=== PATIENT | female | born 1940 | race Caucasian/White ===

== ENCOUNTER 2016-08-03 05:00 | Inpatient (IN) | payer BC, OTHER ==
--- NOTE | 2016-07-13 09:47 | History and Physical ---
History & Physical Date July 13, 2016. Chief Complaint left knee pain History of Present Illness Ms Izaguirre is a 75 year old female who complains of left knee pain, she presents with pain, crepitus, stiffness and decreased rom on the right and left side equally. She states that the symptoms have been chronic non-traumatic. The symptoms occur constantly with intermittent worsening. The problem is worse. Currently the patient states that the symptoms are moderate-severe. The pain is described as aching and throbbing. The symptoms occur continuously and are aggravated by daily activities, ascending stairs, descending stairs, weight bearing and walking. The symptoms are aggravated by. Katie states that the symptoms are relieved by no specific activity. In addition to knee pain equally on both sides the patient is also experiencing decreased mobility, crepitus, limping and joint pain. The patient has had a previous x-ray and MRI. Prior NSAIDs include Glucosamine and Aleve. She has been treated with Pt. has had Syn. One, Eufflexxa and Cortisone in the past with little relief and PRP 11-06- \ on the right side. Pt. has tried all types of injections with little to no relief. Pt. ambulated back with assistance from her for stability. Past Medical/Surgical History Past Medical History 1. Hypertension 2. Diabetes 3. GERD Allergies 1. Sulfa- causes hives Home Medications: Zoloft 100 mg Tab Y take 1 tablet (100MG) by oral route every day folic acid 1 mg Tab Y take 1 tablet (1MG) by oral route every day Fergon 240 mg (27 mg iron) Tab Y take 2 tablet (480MG) by oral route 3 times every day Humulin N 100 unit/mL Susp, Sub-Q Inj Y inject by subcutaneous route as per insulin sliding scale protocol Coreg 25 mg Tab Y take 1 tablet (25MG) by oral route 2 times every day with food Aldactone 25 mg Tab Y take 1 tablet (25MG) by oral route every day Lasix 20 mg Tab Y take 1 tablet (20MG) by oral route every day Prilosec Y take 1 capsule by oral route every day before a meal Victoza 2-Mark Y inject 1.2 milliliter by subcutaneous route every day Glucosamine Chondroitin PLUS 375 mg-100 mg-36 mg-54 mg capsule Y 1 capsule by oral route once daily multivitamin capsule Y take 1 capsule by oral route every day Additional History Hypertension: Yes Heart Disease: No Bleeding Tendencies: No Infectious Diseases: No Physical Examination Skin: warm/dry, no rash Eyes: normal inspection, EOMI, sclerae normal ENT: normal ENT inspection, pharynx normal Head: normocephalic, atraumatic Neck: supple, no adenopathy, trachea midline Respiratory/Chest: lungs clear, normal breath sounds, no respiratory distress Cardiovascular: regular rate, rhythm, no edema, no murmur Abdomen / GI: normal bowel sounds, non tender Addiitonal Comments: Left Knee Exam Exam Findings Details Knee ROM L * Active ROM - Flexion: 120 degrees, Extension: 3 degrees, Factors: pain, Description: active painful range of motion. Passive ROM - Flexion: 125 degrees, Extension: 3 degrees, Factors: pain, Description: passive painful range of motion. Knee ROM R * Active ROM - Flexion: 135 degrees, Extension: 0 degrees, Factors: pain, Description: active painful range of motion. Passive ROM - Flexion: 135 degrees, Extension: 0 degrees, Factors: pain, Description: passive painful range of motion. Strength LE Normal Strength Description - Normal lower extremity: Bilateral. Knee * Inspection - Gait: antalgic. Alignment - Right: neutral, Left: neutral. Ecchymosis - Right: negative, Left: negative. Effusion - Right: mild, Left: mild. Swelling - Right: mild, Left: mild. Flexibility - Right: normal, Left: normal. Maximum tenderness - Right: medial joint line, lateral joint line, patella, Left: medial joint line, lateral joint line, patella. Patella exam - Crepitation - Right: mild, Left: mild. Patella position - Right: neutral, Left: neutral. Tilt - Right: equal, Left: equal. [facility]'s - lateral - Right: Positive, Left: Positive. [facility]'s - medial - Right: Positive, Left: Positive. Knee Comments No calf tenderness Knee Normal Inspection - Atrophy - Right: Absent, Left: Absent. Skin - Right: Normal, Left: Normal. Patella exam - Apprehension - Right: Negative, Left: Negative. Q-angle - Right: Normal, Left: Normal. Roby's - Right: Negative, Left: Negative. Posterior drawer - Right: Negative, Left: Negative. Anterior drawer - Right: Negative, Left: Negative. Valgus stress - Right: Negative, Left : Negative. Varus stress - Right: Negative, Left: Negative. Extensor lag - Right : Normal, Left: Normal. Neurovascular LE Normal Neurovascular examination including reflexes, sensation , and pulses is within normal limits. Left Knee Diagnostics: Study Result/Report X-RAY Knee 4 Or More Views LT See Details Valgus stress radiographs of the knee reveal correction of the varus deformity to neutral without overcorrection. Standing weight bearing flexed knee PA views reveal [id number] articulation of the medial compartment of the knee. 90 degree flexed lateral views reveal maintenance of the joint space consistent with an intact ACL. Osteophyte formation is noted. The patellofemoral articulation is well maintained without significant degenerative changes. The lateral compartment is well maintained. ASSESSMENT: Severe anteromedial arthritis of the knee. X-RAY Knee 4 Or More Views RT Valgus stress radiographs of the knee reveal correction of the varus deformity to neutral without overcorrection. Standing weight bearing flexed knee PA views reveal [id number] articulation of the medial compartment of the knee. 90 degree flexed lateral views reveal maintenance of the joint space consistent with an intact ACL. Osteophyte formation is noted. The patellofemoral articulation is well maintained without significant degenerative changes. The lateral compartment is well maintained. ASSESSMENT: Severe anteromedial arthritis of the knee. Diagnosis left knee Osteoarthritis -Further care discussed with patient and at this point in time has failed conservative measures and would like to proceed with a left total knee replacement. Plan on discharge will be home with home health physical therapy. DVT prophalaxis with TEDs, SCDs and will also place on aspirin 81 mg p.o. b.i.d. for a month postop. Patient will have follow up appointment in our office two weeks post op for staple/suture removal and re-evaluation. Patient otherwise has no other questions or concerns.
[2016-07-13 11:55] VITALS: BMI 38.0
--- NOTE | 2016-07-13 12:41 | PAT Medication Instructions ---
Service Date July 13, 2016. Current Home Medication List Amlodipine (Norvasc), 10 MG PO QAM Carvedilol (Coreg), 1 TAB PO BID Ferrous Gluconate (Ferrous Gluconate), 324 MG PO QAM Folic Acid (Folic Acid), 2 TAB PO QAM Furosemide (Lasix), 20 MG PO QAM Insulin Human NPH (Humulin N), 32 UNITS SQ QAM Insulin Human NPH (Humulin N), 23 UNITS SQ QPM Irbesartan (Avapro), 150 MG PO QAM Omeprazole (Prilosec), 20 MG PO QAM Sertraline (Zoloft), 100 MG PO QAM Sitagliptin (Januvia), 50 MG PO QAM Spironolactone (Aldactone), 25 MG PO BID Medication Instructions For Your Scheduled Surgery - Hold the following medications the morning of surgery: Irbesartan (Avapro), 150 MG PO QAM Spironolactone (Aldactone), 25 MG PO BID Sitagliptin (Januvia), 50 MG PO QAM Sertraline (Zoloft), 100 MG PO QAM Furosemide (Lasix), 20 MG PO QAM Folic Acid (Folic Acid), 2 TAB PO QAM Ferrous Gluconate (Ferrous Gluconate), 324 MG PO QAM - Take the following medications the morning of surgery with a sip of water: Omeprazole (Prilosec), 20 MG PO QAM Carvedilol (Coreg), 1 TAB PO BID Amlodipine (Norvasc), 10 MG PO QAM - Take the following medications as scheduled the night before surgery: Insulin Human NPH (Humulin N), 23 UNITS SQ QPM Spironolactone (Aldactone), 25 MG PO BID Carvedilol (Coreg), 1 TAB PO BID - For Insulin Dependent Diabetic patients: Test blood sugar A.M. of surgery. - If Blood sugar greater than 150, take half of your regular dose of: Insulin Human NPH (Humulin N); take 16 units - If Blood sugar less than 150, do not take any: Insulin Human NPH (Humulin N) If you have any questions please call us at [phone] (Mehnaz Kiser PA-C) or [phone] or [phone]
[2016-07-13 13:15] LABS: BASO % 0.4 %; BASO ABS # 0.03 K/uL (0-0.2); COMPLETE YES; HEMATOCRIT 38.6 % (37-47); IG% 0.3 %; LYMPH % 26.7 %; LYMPH ABS # 1.94 K/uL (1.2-3.4); MEAN CELL VOLUME 87.3 fL (80-100); MEAN CORPUSCULAR HEMOGLOBIN 28.7 pg (25-34); MEAN CORPUSCULAR HGB CONC 32.9 g/dl (32-36); MEAN PLATELET VOLUME 10.6 fL (7.4-10.4); MONO % 8.4 %; NEUT % 61.2 %; PLATELET COUNT 202 K/uL (130-400); RED BLOOD COUNT 4.42 M/uL (4.2-5.4); WHITE BLOOD COUNT 7.26 K/uL (4.8-10.8)
--- NOTE | 2016-07-13 13:16 | DIAGNOSTIC IMAGING REPORT ---
CHEST PREADMISSION(PA/LAT) CLINICAL HISTORY: Preoperative evaluation. COMPARISON STUDY: No previous studies for comparison. FINDINGS: The lung volumes are normal. There is no pneumothorax or pleural effusion. There are cholecystectomy clips. Borderline cardiomegaly is noted. Mild interstitial prominence is noted. There is no consolidation to suggest pneumonia. IMPRESSION: 1. Mild age indeterminate interstitial thickening. This is probably chronic although mild pulmonary edema could appear similar. 2. Top normal cardiac size. Electronically signed by: Skyler Sifuentes M.D. 07/13/2016 1:15 PM Dictated Date/Time: 07/13/2016 1:14 PM
[2016-07-13 13:20] LABS: URINE APPEARANCE CLEAR (CLEAR); URINE BILIRUBIN NEG (NEG); URINE COLOR YELLOW; URINE EPITHELIAL CELL AUTO >30 /lpf (0-5); URINE NITRITE NEG (NEG); URINE SPECIFIC GRAVITY 1.019 (1.000-1.030); UROBILINOGEN NEG (NEG); ZZUR CULT IF INDIC CLEAN CATCH NO
[2016-07-13 13:21] LABS: MANUAL MICROSCOPIC REQUIRED? NO; REVIEW REQ? NO
[2016-07-13 13:24] LABS: INR 1.1 (0.9-1.1); PROTHROMBIN TIME (PATIENT) 11.3 SECONDS (9.0-12.0)
[2016-07-13 13:59] LABS: BUN/CREATININE RATIO 28.5 (10-20); CALCIUM 8.9 mg/dl (8.5-10.1); CREATININE 1.1 mg/dl (0.60-1.20); POTASSIUM 5.2 mmol/L (3.5-5.1)
[2016-07-13 14:10] LABS: ESTIMATED AVERAGE GLUCOSE 140 mg/dl; HA1C FLAG Normal (Normal)
[~2016-08-03] VITALS: Ht 175.3 cm; Wt 118.0 kg
[2016-08-03] VITALS (10 sets, daily range): BP systolic 123–163; BP diastolic 67–89; PULSE 59–93; TEMP 36.7–36.9; O2SAT 93–97; Ht 175.3 cm; Wt 118.0 kg
[~2016-08-03 05:00] MED LIST: AMLO-114 PO; CARV25TA2 PO; FERR325T18 PO; FLV1 PO; FURO-85 PO; INSHNI SQ; IRBE-37 PO; PRLSR20 PO; SERT-234 PO; SITA50TA3 PO; SPIR25TA PO
[2016-08-03] MEDS ORDERED: LACTATED RINGER'S 1000ML 1,000 ML IV SCH ×2 (06:00)
[2016-08-03] MEDS ORDERED: CEFAZOLIN 3000 MG/65 ML D5W 65 ML IV SCH (06:00)
[2016-08-03] MEDS ORDERED: ROPIVACAINE 5MG/ML 30 ML 150 MG, BUPIVACAINE/EPINEPHR 0.5% MPF 30 ML, KETOROLAC TROMETH... INFIL SCH ×7 (06:00)
[2016-08-03] MEDS ORDERED: PROPOFOL IV EMULSION 10 MG/ML 20 ML VIAL IV ONE (06:23)
[2016-08-03] MEDS ORDERED: MIDAZOLAM HCL 1 MG/ML 2ML VIAL ONE ×3 (06:23→08:05)
[2016-08-03] MEDS ORDERED: FENTANYL CITRATE INJ 50 MCG/1 ML 2 ML VIAL ONE (06:23)
[2016-08-03] MEDS ORDERED: POVIDONE-IODINE OP SOLN 30 ML BTL ONE (06:30)
[2016-08-03] MEDS ORDERED: BACITRACIN 50000 UNIT VIAL ONE (06:31)
[2016-08-03] MEDS ORDERED: BUPIVACAINE 0.5 % 5 MG/1 ML PF 10ML VIAL ONE (06:32)
[2016-08-03] MEDS ORDERED: BUPIVACAINE 0.25% 30 ML VIAL ONE (06:32)
[2016-08-03] MEDS ORDERED: CEFAZOLIN IV 3,000 MG/65 ML D5W IV ONE (06:43)
--- NOTE | 2016-08-03 06:52 | History & Physical Bridge Note ---
H&P Re-Evaluation Bridge Note: I have examined the patient, reviewed the History & Physical and in the interval since the performance of the History & Physical I have noted the following changes of clinical significance: No changes noted
[2016-08-03] MEDS ORDERED: LACTATED RINGER'S 1000ML 1,000 ML IV PRN (07:36)
[2016-08-03] MEDS ORDERED: ONDANSETRON INJ 2 MG/ML 2 ML VIAL IV PRN (07:45)
[2016-08-03] MEDS ORDERED: FENTANYL CITRATE INJ 50 MCG/1 ML 2 ML VIAL IV PRN (07:45)
[2016-08-03] MEDS ORDERED: ONDANSETRON INJ 2 MG/ML 2 ML VIAL ONE (07:55)
--- NOTE | 2016-08-03 07:59 | [facility] Post Operative Brief Note ---
Immediate Operative Summary Operative Date Aug 03, 2016. Pre-Operative Diagnosis Left Knee Degenerative Joint Disease Post-Operative Diagnosis Same as Preop Procedure(s) Performed Left Total Knee Arthroplasty Surgeon Dr. Rosenbaum Dragline Operator Surgeon(s) Moises Markham PA-C Estimated Blood Loss 5ml Findings severe djd lt knee Specimens A. Left Knee Bone and Tissue Complication(s) None Disposition Recovery Room / PACU
--- NOTE | 2016-08-03 08:33 | OPERATIVE REPORT ---
DATE OF OPERATION: 08/03/2016 PREOPERATIVE DIAGNOSIS: Severe end-stage tricompartmental degenerative joint disease, left knee. POSTOPERATIVE DIAGNOSIS: Severe end-stage tricompartmental degenerative joint disease, left knee. PROCEDURE: Left total knee arthroplasty utilizing Gorman & Nephew Journey II patient matched total knee arthroplasty size 4 femur, 3 tibia, 9 poly, and 32 oval patella. SURGEON: Dr. James Rosenbaum. MACHINE STAKER: Moises Markham, who was necessary for prepping, draping, retraction, wound closure of deep fascia, subcutaneous and skin and was necessary for the case. COMPLICATIONS: None. ESTIMATED BLOOD LOSS: 5 mL. TOURNIQUET TIME: 40 minutes. HISTORY OF PRESENT ILLNESS: The patient is a very pleasant 75-year-old female who presents with severe end-stage tricompartmental degenerative joint disease. After failing all attempts at conservative management, she presents for total knee arthroplasty. DESCRIPTION OF PROCEDURE: The patient was properly prepped and draped in supine position for total knee arthroplasty after identifying the appropriate surgical site. An anterior midline incision was made through the subcutaneous tissues down to the region of the extensor mechanism. A medial parapatellar incision was subsequently made. Meticulous hemostasis was obtained and performed at all times. The patella having been subluxed lateralward, medial and lateral meniscal remnants were excised. The patellar cut was then initially made and was sized to the appropriate size. After subluxing the tibia forward the appropriate meniscal fragments having been removed the distal femur was then cut first utilizing a Gorman and Nephew block. The distal femoral cuts and chamfer cuts were all made under direct visualization and the proximal tibial osteotomy cut was also made utilizing Gorman and Nephew blocks and checked with an extramedullary guide. The appropriate trial components on the femur and tibia were placed. Appropriate trial spacers were used to check flexion and extension gaps. With flexion and extension gaps being equal, the components were then subsequently after thorough irrigation and debridement lavage components were then subsequently cemented in the following order: femur, tibia and patella. Exparel was used for intraoperative anesthesia, the medial parapatellar incision was closed utilizing #1 Vicryl, subQ was closed with 2-0 Vicryl, skin was closed with skin clips. A sterile compression dressing was placed. The patient was taken to recovery room in stable condition. Due to the complex nature of the procedure, the entire surgery was performed with the operational assistance of Moises Markham PA-C. The medical claims assistant, under direct supervision, was involved in the actual performance of all aspects of the surgical procedure including hemostasis, tissue retraction and incision, instrument management, patient positioning, and wound closure. I attest to the content of the Intraoperative Record and any orders documented therein. Any exception s are noted below.
[2016-08-03] MEDS ORDERED: MoRPHine SULFATE 2 MG/ML CARP IV PRN ×2 (08:45→10:30)
[2016-08-03] MEDS ORDERED: MAGNESIUM HYDROXIDE SUSP 30 ML UDC PO PRN (08:45)
[2016-08-03] MEDS ORDERED: BISACODYL 10 MG SUPP PR PRN (08:45)
[2016-08-03] MEDS ORDERED: ALUMINUM/MAGNESIUM/SIMETH (MAALOX MAX) 30 ML UDC PO PRN (08:45)
[2016-08-03] MEDS ORDERED: SOD PHOSPHATE/SOD BIPHOSPHATE ENEMA 132 ML BTL PR PRN (08:45)
[2016-08-03] MEDS ORDERED: ZOLPIDEM TARTRATE 5 MG TAB PO PRN (08:45)
[2016-08-03] MEDS: CARVEDILOL 25 MG TAB PO SCH ×2 (09:00→21:00)
[2016-08-03] MEDS: AMLODIPINE BESYLATE 5 MG TAB PO SCH (09:00)
[2016-08-03] MEDS ORDERED: FERROUS GLUCONATE 324 MG TAB PO SCH (09:00)
--- NOTE | 2016-08-03 09:24 | DIAGNOSTIC IMAGING REPORT ---
LEFT KNEE 1 OR 2 VIEWS ROUTINE CLINICAL HISTORY: AP/LATERAL IN PACU LEFT KNEE COMPARISON: None. DISCUSSION: Total left knee replacement. Good contact between prosthetic and underlying bone. Surgical drains are in position. IMPRESSION: Anatomic alignment status post total left knee replacement. Electronically signed by: Moises Trammell M.D. 08/03/2016 9:22 AM Dictated Date/Time: 08/03/2016 9:21 AM
--- NOTE | 2016-08-03 09:56 | Anesthesiology Progress Note ---
Anesthesia Post Op Note Date & Time Aug 03, 2016 at 09:56 Vital Signs Pain Intensity: 0 Vital Signs Past 12 Hours Date Time Temp Pulse Resp B/P (MAP) Pulse Ox O2 Delivery O2 Flow Rate FiO2 08/03/16 09:20 36.9 53 14 135/55 94 Nasal Cannula 3 08/03/16 09:10 64 14 127/61 94 Nasal Cannula 3 08/03/16 09:00 55 14 138/68 96 Nasal Cannula 3 08/03/16 08:50 52 14 126/66 96 Nasal Cannula 3 08/03/16 08:40 37. 55 14 121/51 98 Nasal Cannula 3 08/03/16 05:52 36.7 63 20 149/67 97 Room Air Notes Mental Status: alert / awake / arousable, participated in evaluation Pt Amnestic to Procedure: Yes Nausea / Vomiting: adequately controlled Pain: adequately controlled Airway Patency, RR, SpO2: stable & adequate BP & HR: stable & adequate Hydration State: stable & adequate Neuraxial Anesthesia: was administered, sensory block is resolving Anesthetic Complications: no major complications apparent
[2016-08-03] MEDS ORDERED: MoRPHine SULFATE 10 MG/ML CARP/VIAL IV PRN (10:30)
[2016-08-03] MEDS: SODIUM CHLORIDE 0.9% 1000ML 1,000 ML IV SCH ×2 (10:33→17:52)
[2016-08-03] MEDS: OXYCODONE HCL IR 5 MG TAB (IMMEDIATE RELEASE) PO PRN ×2 (11:45→15:57)
[2016-08-03] MEDS: OXYCODONE HCL 10 MG TABCR (OXYCONTIN) PO SCH ×2 (12:00→20:57)
[2016-08-03] MEDS: CEFAZOLIN IV 2,000 MG in DEXTROSE 5% 50ML 50 ML IV SCH ×2 (13:21→21:01)
[2016-08-03] MEDS: FERROUS GLUCONATE 324 MG TAB PO SCH ×2 (13:21→17:45)
[2016-08-03] MEDS: ONDANSETRON INJ 2 MG/ML 2 ML VIAL IV PRN (15:22)
--- NOTE | 2016-08-03 15:35 | INTERNAL MEDICINE CONSULTATION ---
DATE OF CONSULTATION: 08/03/2016 REASON FOR CONSULTATION: Medical co-care status post total knee replacement. HISTORY OF PRESENT ILLNESS: The patient is a 75-year-old female with past medical history of hypertension, diabetes and atrial fibrillation. The patient suffered from severe arthritis that failed outpatient conservative management and presented for an elective left knee replacement. The procedure went uneventful and we were consulted for medical co-care. It was noticed in her labs that the potassium is borderline elevated. PAST MEDICAL HISTORY: As mentioned in the HPI. ALLERGIES: SULFA. HOME MEDICATIONS: 1. Zoloft 100 mg p.o. daily. 2. Folic acid supplement. 3. Fergon 240 tablet 2 tabs by mouth 3 times a day. 4. Insulin regimen, unsure from how many units. 5. Coreg 25 mg p.o. b.i.d. 6. Aldactone 25 mg p.o. daily. 7. Lasix 20 mg daily. 8. daily. 9. Victoza 2 packs. 10. Glucosamine/chondroitin. 11. Multivitamin. FAMILY HISTORY: Heart disease and diabetes. SOCIAL HISTORY: Does not smoke or drink alcohol. PHYSICAL EXAMINATION: GENERAL: The patient is morbidly obese, not in acute distress. VITAL SIGNS: Temperature 36.7, heart rate is 61, respirations 16, blood pressure 132/73, pulse ox 96% on 2 liters. HEENT: No jaundice, no pallor with mucous membranes. NECK: Supple. HEART: S1, S2 normal. No gallop, rub or murmur. LUNGS: Clear to auscultation bilaterally. Normal chest wall expansion. ABDOMEN: Soft, nontender, nondistended. NEUROLOGIC: Awake, alert, oriented to time, place, and person. Moves all extremities. Sensation intact. Cranial nerves II through XII appears to be intact. EXTREMITIES: Left knee is wrapped status post total knee replacement. ASSESSMENT: 1. Hyperkalemia, possible secondary to dehydration. 2. Diabetes mellitus. 3. Hypertension. 4. Dyslipidemia. 5. Atrial fibrillation. 6. Status post left knee replacement. PLAN: 1. We will repeat patient's potassium levels. 2. Continue supportive care. 3. Restart patient's on home medications, will leave Eliquis initiation up to the primary team. She was supposed to start Eliquis for atrial fibrillation. 4. Continue post-surgical care. 5. Pain management as per primary team. 6. We will order labs in a.m. 7. The patient appears to be clinically suspicious for obstructive sleep apnea. She was instructed to do a sleep study as an outpatient. LAUREL
[2016-08-03 15:52] LABS: CALCIUM 7.9 mg/dl (8.5-10.1); CREATININE 1.2 mg/dl (0.60-1.20); POTASSIUM 5.1 mmol/L (3.5-5.1)
[2016-08-03] MEDS: DOCUSATE SODIUM 100 MG CAP PO SCH (20:57)
[2016-08-03] MEDS: SENNA 8.6 MG TAB PO SCH (20:57)
[2016-08-03] MEDS ORDERED: ASPIRIN 81 MG ECTAB PO SCH (21:00)
[2016-08-04] VITALS (8 sets, daily range): BP systolic 117–167; BP diastolic 64–78; PULSE 79–90; TEMP 36.8–37.1; O2SAT 92–97
[2016-08-04] MEDS: ONDANSETRON INJ 2 MG/ML 2 ML VIAL IV PRN ×3 (00:15→22:35)
[2016-08-04] MEDS: OXYCODONE HCL IR 5 MG TAB (IMMEDIATE RELEASE) PO PRN ×5 (00:16→22:36)
[2016-08-04] MEDS: SODIUM CHLORIDE 0.9% 1000ML 1,000 ML IV SCH (04:31)
[2016-08-04 05:46] LABS: BASO % 0.1 %; BASO ABS # 0.01 K/uL (0-0.2); COMPLETE YES; HEMATOCRIT 32.9 % (37-47); IG% 0.3 %; LYMPH % 10.1 %; MEAN CORPUSCULAR HEMOGLOBIN 28.9 pg (25-34); MEAN PLATELET VOLUME 10.5 fL (7.4-10.4); MONO % 9.9 %; NEUT % 79.6 %; PLATELET COUNT 194 K/uL (130-400); RED BLOOD COUNT 3.87 M/uL (4.2-5.4); WHITE BLOOD COUNT 11.92 K/uL (4.8-10.8)
[2016-08-04 06:02] LABS: INR 1.1 (0.9-1.1); PROTHROMBIN TIME (PATIENT) 12.2 SECONDS (9.0-12.0)
[2016-08-04 06:37] LABS: BUN/CREATININE RATIO 21.3 (10-20); CALCIUM 7.7 mg/dl (8.5-10.1); CREATININE 0.98 mg/dl (0.60-1.20); MAGNESIUM 1.8 mg/dl (1.8-2.4); POTASSIUM 4.6 mmol/L (3.5-5.1)
[2016-08-04 06:40] LABS: ALB/GLOB RATIO 0.9 (0.9-2); PHOSPHORUS 2.8 mg/dl (2.5-4.9)
--- NOTE | 2016-08-04 07:04 | Orthopedic Progress Note ---
Orthopedic Progress Note Date of Service Aug 04, 2016. Subjective Post OP Day: 1 (s/p Left TKA) Reports: feeling well, pain controlled w PO medications, Denies: complaints, chest pain, SOB, nausea / vomiting, light headedness, calf pain Objective calves soft nontender, N/V intact, capillary refill less than 2 sec., dressing C /D/I, A&O x3, toes mobile, hemovac drainage (300cc/8 hours) Date Time Temp Pulse Resp B/P (MAP) Pulse Ox O2 Delivery O2 Flow Rate FiO2 08/04/16 03:15 36.9 84 17 124/72 (89) 94 Nasal Cannula 2.0 08/04/16 00:30 Nasal Cannula 2.0 08/03/16 23:09 36.8 87 16 123/72 (89) 97 Nasal Cannula 2.0 08/03/16 20:59 93 163/89 (113) 08/03/16 19:09 36.9 85 16 127/73 (91) 94 Room Air 08/03/16 18:55 Room Air 08/03/16 15:19 36.7 81 18 144/67 (92) 94 Room Air 08/03/16 12:39 66 16 128/71 (90) 95 Nasal Cannula 08/03/16 11:39 70 16 132/75 (94) 97 Nasal Cannula 2.0 08/03/16 10:41 60 16 134/72 (92) 96 Nasal Cannula 2.0 08/03/16 10:17 61 16 132/73 (92) 96 Nasal Cannula 2.0 08/03/16 10:04 93 Nasal Cannula 2.0 08/03/16 09:45 36.7 59 16 131/69 (89) 94 Nasal Cannula 2.0 08/03/16 09:45 93 Nasal Cannula 2.0 08/03/16 09:20 36.9 53 14 135/55 94 Nasal Cannula 3 08/03/16 09:10 64 14 127/61 94 Nasal Cannula 3 08/03/16 09:00 55 14 138/68 96 Nasal Cannula 3 08/03/16 08:50 52 14 126/66 96 Nasal Cannula 3 08/03/16 08:40 37. 55 14 121/51 98 Nasal Cannula 3 Laboratory Results 24 Hours: Test 08/04/16 05:19 White Blood Count 11.92 K/uL Red Blood Count 3.87 M/uL Hemoglobin 11.2 g/dL Hematocrit 32.9 % Mean Corpuscular Volume 85.0 fL Mean Corpuscular Hemoglobin 28.9 pg Mean Corpuscular Hemoglobin Concent 34.0 g/dl Platelet Count 194 K/uL Mean Platelet Volume 10.5 fL Neutrophils (%) (Auto) 79.6 % Lymphocytes (%) (Auto) 10.1 % Monocytes (%) (Auto) 9.9 % Eosinophils (%) (Auto) 0.0 % Basophils (%) (Auto) 0.1 % Neutrophils # (Auto) 9.50 K/uL Lymphocytes # (Auto) 1.20 K/uL Monocytes # (Auto) 1.18 K/uL Eosinophils # (Auto) 0.00 K/uL Basophils # (Auto) 0.01 K/uL Prothromb Time International Ratio 1.1 Prothrombin Time 12.2 SECONDS Assessment & Plan Assessment: POD #1 s/p Left TKA -PT/OT -dvt proph with greg/scd/eliquis -plan for d/c home with HHPT Hyperkalemia- within normal limits today Diabetes mellitus. Hypertension. Dyslipidemia. Atrial fibrillation.- will start eliquis this am Discharge Planning Discharge Planning: home with home health DVT Prophylaxis: TEDs, SCDs Therapy: Physical Therapy
[2016-08-04] MEDS: MULTIVITAMIN TAB PO SCH (09:13)
[2016-08-04] MEDS: DOCUSATE SODIUM 100 MG CAP PO SCH ×2 (09:14→21:17)
[2016-08-04] MEDS: CARVEDILOL 25 MG TAB PO SCH ×2 (09:14→21:19)
[2016-08-04] MEDS: SERTRALINE HCL 100 MG TAB PO SCH (09:14)
[2016-08-04] MEDS: AMLODIPINE BESYLATE 5 MG TAB PO SCH (09:15)
[2016-08-04] MEDS: PANTOprazole SOD 40 MG TAB PO SCH (09:15)
[2016-08-04] MEDS: APIXABAN 2.5 MG TAB PO SCH ×2 (09:15→21:18)
[2016-08-04] MEDS: FERROUS GLUCONATE 324 MG TAB PO SCH ×3 (09:15→17:45)
[2016-08-04] MEDS ORDERED: NURSING VERBAL MED ORDER ONE (10:00)
[2016-08-04] MEDS ORDERED: METOCLOPRAMIDE HCL INJ 5 MG/ML 2 ML VIAL IV PRN ×2 (10:15→16:15)
[2016-08-04] MEDS: MoRPHine SULFATE 4 MG/ML 1 ML CARP\\VIAL IV PRN ×2 (11:08→18:00)
[2016-08-04] MEDS: OXYCODONE HCL 10 MG TABCR (OXYCONTIN) PO SCH ×2 (11:10→21:14)
--- NOTE | 2016-08-04 11:32 | Discharge Instructions ---
Discharge Instructions Date of Service Aug 04, 2016. Admission Reason for Admission: Left Knee Osteoarthritis Discharge Discharge Diagnosis / Problem: Left Total Knee Replacement Discharge Goals Goal(s): Decrease discomfort, Improve function, Increase independence Activity Recommendations Activity Limitations: as noted below Weightbearing Status: Left weightbearing (as tolerated) . Instructions / Follow-Up Instructions / Follow-Up ACTIVITY RECOMMENDATIONS: SELF CARE INSTRUCTIONS AFTER TOTAL KNEE REPLACEMENT A. You may need to continue a physical therapy program after discharge from the hospital. There are several options available to you. Your doctor will assist you in selecting the best one for you. 1. An out-patient facility 2 to 3 times a week for therapy or home therapy. 2. Continue working on all exercises taught to you in the hospital. Your goals should be to increase bending of your knee to 90 degrees and beyond and to fully straighten your knee. B. You may progress at your own pace from walking with a walker or crutches to a cane; then to no assistive devices. C. Make walking a part of your daily routine. Be up as much as comfortable with rest periods throughout the day. Rest with leg elevation is very important. Use the ice wrap frequently for the first 3-4 weeks. D. There are no restrictions on activities. You may ride in a car, shop, participate in customer support technician and all social activities. E. Wear the long elastic stockings (KLEBER hose) 20 hours a day for 2 weeks after surgery. They can be removed several times a day for laundering and for a bath. F. You may shower, no tub baths until cleared by your doctor. SPECIAL CARE INSTRUCTIONS: VERY IMPORTANT TO READ AND REVIEW A. There are a few signs you need to watch for after you are home. Call [facility] [place] if you notice any of the followin. Increased severe knee pain. Some pain is expected especially when you exercise. 2. Increased swelling in your leg or knee; pain or swelling of the calf muscle in either lower leg. 3. Any fluid drainage from the incision. 4. Shortness of breath or chest pain. B. Please call [facility] at if you have any concerns or questions about your operation or recovery. The doctor or his nurse will return your call promptly. C. You must take antibiotics before dental work, bladder, bowel or other surgery. Your doctor will provide you with a permanent care to carry describing this precaution. IMPORTANT: * REMEMBER TO TAKE ASPIRIN, 81 MG, TWICE DAILY FOR 4 WEEKS UNLESS OTHERWISE DIRECTED. THIS IS YOUR BLOOD THINNER. * HIGH RISK PATIENTS MAY BE PRESCRIBED A STRONGER BLOOD THINNER. THIS WILL BE PROVIDED AT DISCHARGE. * CALL IF INCREASED PAIN, REDNESS, DRAINAGE OR FEVER GREATER THAT 101. * WEAR KLEBER HOSE 20 HOURS PER DAY FOR 2 WEEKS. * Prevena- This is a large suction dressing covering your incision. This will help pull any excess drainage from the wound and allow your incision to heal properly. You may shower with this if you can keep the unit outside of the shower. If any bleeding or leakage is noted please call your doctor's office. This will remain on your incision for 7 days and then should be removed. This can be done yourself or by the home nursing staff if applicable. The entire unit is disposable once removed. Once removed, keep incision clean and dry. If redness or drainage is noted, please call your surgeon. FOLLOW UP VISIT: If appointment is not already scheduled: Please call [facility] to make a follow-up appointment for 2 weeks after your surgery at . Current Hospital Diet Patient's current hospital diet: Diabetes Type 2 Diet Discharge Diet Recommended Diet: Diabetes Type 2 Diet Procedures Procedures Performed: Left Total Knee Arthroplasty Pending Studies Studies pending at discharge: no Laboratory Results Hemoglobin A1c Test 07/13/16 12:50 Range/Units Estimated Average Glucose 140 mg/dl Hemoglobin A1c 6.5 H 4.5-5.6 % Medical Emergencies . Who to Call and When: Medical Emergencies: If at any time you feel your situation is an emergency, please call 911 immediately. . Non-Emergent Contact Non-Emergency issues call your: Primary Care Provider, Surgeon . "Provider Documentation" section prepared by Moises Markham. . VTE Core Measure Inpt VTE Proph given/why not?: Other Anticoagulation (Eliquis 5mg po bid), TSabrina Waite, SCD's [place] Drug Monitoring Program Search Results: patient reviewed within database, no issues identified
[2016-08-04] MEDS ORDERED: DEXTROSE 50% 50 ML SYR IV PRN (15:30)
[2016-08-04] MEDS ORDERED: PROMETHAZINE HCL INJ 12.5 MG in SODIUM CHLORIDE 0.9% 50ML 50 ML IV PRN (15:30)
[2016-08-04] MEDS ORDERED: GLUCAGON FOR INJ 1 MG VIAL SQ PRN (15:30)
[2016-08-04] MEDS ORDERED: GLUCOSE 40% GEL 15 GM TUBE PO PRN (15:30)
[2016-08-04] MEDS ORDERED: GLUCOSE 10 TABS/TUBE PO PRN (15:30)
[2016-08-04] MEDS ORDERED: INSULIN GLARGINE SOLOSTAR 100 UNITS/ML 3 ML PEN SC ONE (16:00)
--- NOTE | 2016-08-04 17:57 | Hospitalist Progress Note ---
Hospitalist Progress Note Date of Service Aug 04, 2016. Subjective Pt evaluation today including: conversation w/ patient, conversation w/ family , physical exam Pt had a lot of N/V today which she says is typical for her always after receiving anesthesia. SHe is now feeling better and is michelle liquids Constitutional: No fever Respiratory: No shortness of breath Cardiovascular: No chest pain Abdomen: + nausea, + vomiting, No pain, No diarrhea Musculoskeletal: + joint pain (left knee) All Other Systems: Reviewed and Negative Objective Vital Signs Date Time Temp Pulse Resp B/P (MAP) Pulse Ox O2 Delivery O2 Flow Rate FiO2 08/04/16 15:07 36.8 80 16 146/65 (92) 93 Nasal Cannula 2.0 08/04/16 11:44 37.1 80 18 137/70 (92) 92 Room Air 08/04/16 10:13 167/78 (107) 08/04/16 08:33 90 150/77 (101) 08/04/16 08:07 96 Room Air 08/04/16 07:45 36.9 79 18 129/64 (85) 96 Room Air 08/04/16 07:30 Room Air 08/04/16 03:15 36.9 84 17 124/72 (89) 94 Nasal Cannula 2.0 08/04/16 00:30 Nasal Cannula 2.0 08/03/16 23:09 36.8 87 16 123/72 (89) 97 Nasal Cannula 2.0 08/03/16 20:59 93 163/89 (113) 08/03/16 19:09 36.9 85 16 127/73 (91) 94 Room Air 08/03/16 18:55 Room Air Physical Exam General Appearance: WD/WN, no apparent distress, + obese Eyes: normal inspection, sclerae normal ENT: hearing grossly normal Neck: trachea midline Respiratory/Chest: lungs clear, normal breath sounds, no respiratory distress, no accessory muscle use Cardiovascular: + irregularly irregular (w/ normal rate) Abdomen: normal bowel sounds, non tender, soft (and obese) Extremities: + pertinent finding (left knee in banadge with ice pack, able to dorsiflex and plantarflex left foot, right leg no edema) Neurologic/Psychiatric: alert, normal mood/affect, oriented x 3 Skin: normal color, warm/dry, no rash Laboratory Results Last 24 Hours Test 08/03/16 20:53 08/04/16 05:19 08/04/16 08:25 08/04/16 12:03 Bedside Glucose 211 mg/dl 189 mg/dl 188 mg/dl White Blood Count 11.92 K/uL Red Blood Count 3.87 M/uL Hemoglobin 11.2 g/dL Hematocrit 32.9 % Mean Corpuscular Volume 85.0 fL Mean Corpuscular Hemoglobin 28.9 pg Mean Corpuscular Hemoglobin Concent 34.0 g/dl Platelet Count 194 K/uL Mean Platelet Volume 10.5 fL Neutrophils (%) (Auto) 79.6 % Lymphocytes (%) (Auto) 10.1 % Monocytes (%) (Auto) 9.9 % Eosinophils (%) (Auto) 0.0 % Basophils (%) (Auto) 0.1 % Neutrophils # (Auto) 9.50 K/uL Lymphocytes # (Auto) 1.20 K/uL Monocytes # (Auto) 1.18 K/uL Eosinophils # (Auto) 0.00 K/uL Basophils # (Auto) 0.01 K/uL RDW Standard Deviation 41.1 fL RDW Coefficient of Variation 13.3 % Immature Granulocyte % (Auto) 0.3 % Immature Granulocyte # (Auto) 0.03 K/uL Prothrombin Time 12.2 SECONDS Prothromb Time International Ratio 1.1 Sodium Level 138 mmol/L Potassium Level 4.6 mmol/L Chloride Level 105 mmol/L Carbon Dioxide Level 24 mmol/L Anion Gap 9.0 mmol/L Blood Urea Nitrogen 21 mg/dl Creatinine 0.98 mg/dl Est Creatinine Clear Calc Drug Dose 67.0 ml/min Estimated GFR () 64.9 Estimated GFR (Non- 56.0 BUN/Creatinine Ratio 21.3 Random Glucose 191 mg/dl Calcium Level 7.7 mg/dl Phosphorus Level 2.8 mg/dl Magnesium Level 1.8 mg/dl Total Bilirubin 0.7 mg/dl Aspartate Amino Transf (AST/SGOT) 16 U/L Alanine Aminotransferase (ALT/SGPT) 19 U/L Alkaline Phosphatase 87 U/L Total Protein 6.4 gm/dl Albumin 3.1 gm/dl Globulin 3.3 gm/dl Albumin/Globulin Ratio 0.9 Test 08/04/16 16:55 Bedside Glucose 195 mg/dl Assessment and Plan This pt is a 75 yo female with a h/o obesity, OA, GERD, DMII, permanent atrial fibrillation on Eliquis, and HTN, here with left TKA. Left TKA-POD#1, Ortho management -DVT proph with Eliquis -pain control PT/OT and plan for home PT -f/u with Ortho outpatient Post-op N/V=-related to anesthesia -continue reglan prn, ZOfran prn, phenergan prn -restart IVFs if continues to not michelle po this evening A-fib/HTN- on Eliquis for anticoagulation, rate controlled with metoprolol, no issues with BP -continue home meds Coreg, Eliquis, amlodipine -irbesartan,lasix, and aldactone all on hold for mild hyperkalemia and to prevent dehydration post-op -continue to hold ARB and diuretics -follow PRP DMII-HgbA1C 6.5% preop, glucose here in hyperglycemic range but received dexamethasone intra-op. -start Lantus 10 units now and then once daily -SSI and accuchecks -return to home dosing of insulin upon discharge as well as Januvia Obesity, acute hypoxemic respiratory insufficiency-requiring 2 LNC, could have MITCHELL given body habitus. Probably some atelectasis as well -IS, mobilization -wean O2 as tolerated -may need 2-step prior to discharge -may need sleep study as an outpatient. Proph-Eliquis Dispo-FUll Code to home with Home PT when stable
[2016-08-04] MEDS: INSULIN ASPART 100 UNITS/ML 3 ML PEN SC SCH ×2 (17:58→21:00)
[2016-08-04] MEDS: SENNA 8.6 MG TAB PO SCH (21:18)
[2016-08-05] VITALS (10 sets, daily range): BP systolic 113–150; BP diastolic 66–82; PULSE 68–91; TEMP 36.9–37.3; O2SAT 83–98
[2016-08-05] MEDS: MoRPHine SULFATE 4 MG/ML 1 ML CARP\\VIAL IV PRN (00:13)
[2016-08-05] MEDS: ONDANSETRON INJ 2 MG/ML 2 ML VIAL IV PRN ×2 (05:42→17:27)
[2016-08-05] MEDS: OXYCODONE HCL IR 5 MG TAB (IMMEDIATE RELEASE) PO PRN ×2 (05:44→21:59)
[2016-08-05 06:04] LABS: BASO % 0.2 %; BASO ABS # 0.02 K/uL (0-0.2); COMPLETE YES; IG% 0.2 %; LYMPH % 17.7 %; LYMPH ABS # 1.88 K/uL (1.2-3.4); MEAN CELL VOLUME 85.6 fL (80-100); MEAN CORPUSCULAR HEMOGLOBIN 29.3 pg (25-34); MEAN CORPUSCULAR HGB CONC 34.2 g/dl (32-36); MEAN PLATELET VOLUME 10.5 fL (7.4-10.4); MONO % 11.5 %; NEUT % 69.4 %; PLATELET COUNT 182 K/uL (130-400); RED BLOOD COUNT 3.62 M/uL (4.2-5.4); WHITE BLOOD COUNT 10.62 K/uL (4.8-10.8)
[2016-08-05 06:38] LABS: CALCIUM 8.3 mg/dl (8.5-10.1); CREATININE 0.85 mg/dl (0.60-1.20); MAGNESIUM 1.8 mg/dl (1.8-2.4); POTASSIUM 4.4 mmol/L (3.5-5.1)
--- NOTE | 2016-08-05 07:06 | Orthopedic Progress Note ---
Orthopedic Progress Note Date of Service Aug 05, 2016. Subjective Post OP Day: 2 Reports: feeling well, nausea / vomiting (improved this am), pain controlled w PO medications, Denies: complaints, chest pain, SOB, light headedness, calf pain Objective calves soft nontender, N/V intact, capillary refill less than 2 sec., dressing C /D/I (prevena in place), A&O x3, toes mobile Date Time Temp Pulse Resp B/P (MAP) Pulse Ox O2 Delivery O2 Flow Rate FiO2 08/05/16 00:00 Room Air 08/04/16 23:48 36.8 88 16 117/70 (86) 97 Nasal Cannula 2.0 08/04/16 15:20 Nasal Cannula 2.0 08/04/16 15:07 36.8 80 16 146/65 (92) 93 Nasal Cannula 2.0 08/04/16 11:44 37.1 80 18 137/70 (92) 92 Room Air 08/04/16 10:13 167/78 (107) 08/04/16 08:33 90 150/77 (101) 08/04/16 08:07 96 Room Air 08/04/16 07:45 36.9 79 18 129/64 (85) 96 Room Air 08/04/16 07:30 Room Air Laboratory Results 24 Hours: Test 08/05/16 05:15 White Blood Count 10.62 K/uL Red Blood Count 3.62 M/uL Hemoglobin 10.6 g/dL Hematocrit 31.0 % Mean Corpuscular Volume 85.6 fL Mean Corpuscular Hemoglobin 29.3 pg Mean Corpuscular Hemoglobin Concent 34.2 g/dl Platelet Count 182 K/uL Mean Platelet Volume 10.5 fL Neutrophils (%) (Auto) 69.4 % Lymphocytes (%) (Auto) 17.7 % Monocytes (%) (Auto) 11.5 % Eosinophils (%) (Auto) 1.0 % Basophils (%) (Auto) 0.2 % Neutrophils # (Auto) 7.37 K/uL Lymphocytes # (Auto) 1.88 K/uL Monocytes # (Auto) 1.22 K/uL Eosinophils # (Auto) 0.11 K/uL Basophils # (Auto) 0.02 K/uL Assessment & Plan Assessment: POD #2 s/p Left TKA -PT/OT -dvt proph with greg/scd/eliquis -plan for d/c home with HHPT, if nausea remains controlled will likely d/c later today. Hyperkalemia- within normal limits today Diabetes mellitus. Hypertension. Dyslipidemia. Atrial fibrillation.- started her Eliquis yesterday am. Discharge Planning Discharge Planning: home with home health DVT Prophylaxis: TEDs, SCDs Therapy: Physical Therapy
[2016-08-05] MEDS ORDERED: ONDA8TAB6 PO (07:10)
[2016-08-05] MEDS ORDERED: RXC5 PO (07:10)
[2016-08-05] MEDS ORDERED: ELQ25 PO (07:10)
[2016-08-05] MEDS ORDERED: OXYSR10 PO (07:10)
--- NOTE | 2016-08-05 07:14 | Discharge Summary ---
Orthopedic Discharge Summary Admission Date/Reason Aug 03, 2016 at 08:49 Left Knee Osteoarthritis. Discharge Date/Disposition Aug 05, 2016 Home with services Diagnosis Principal Diagnosis: Left Knee DJD Procedure(s) Performed Left total knee arthroplasty utilizing [facility] patient matched total knee arthroplasty size 4 femur, 3 tibia, 9 poly, and 32 oval patella. Consultations Nikki Lee MD, medical consultation Medication Reconciliation New Medications: Ondansetron Hcl (Zofran) 8 Mg Tab 8 MG PO Q8 PRN for Nausea, #20 TAB Apixaban (Eliquis) 2.5 Mg Tab 5 MG PO BID for 30 Days, #120 TAB Oxycodone HCl (Oxycontin) 10 Mg Tabcr 10 MG PO Q12, #20 Oxycodone HCl (Oxycodone HCl) 5 Mg Tab 5-10 MG PO Q4H PRN for Pain, #60 TAB Continued Medications: Amlodipine (Norvasc) 10 Mg Tab 10 MG PO QAM, TAB Carvedilol (Coreg) 25 Mg Tab 1 TAB PO BID for 90 Days, #180 TAB 1 Refill Ferrous Gluconate (Ferrous Gluconate) 324 Mg Tab 324 MG PO QAM, TAB Folic Acid (Folic Acid) 1 Mg Tab 2 TAB PO QAM Furosemide (Lasix) 20 Mg Tab 20 MG PO QAM, TAB Insulin Human NPH (Humulin N) 100 Units/Ml Susp 32 UNITS SQ QAM Insulin Human NPH (Humulin N) 100 Units/Ml Susp 23 UNITS SQ QPM Irbesartan (Avapro) 150 Mg Tab 150 MG PO QAM, TAB Omeprazole (Prilosec) 20 Mg Capcr 20 MG PO QAM, CAP Sertraline (Zoloft) 100 Mg Tab 100 MG PO QAM, TAB Sitagliptin (Januvia) 50 Mg Tab 50 MG PO QAM, TAB Spironolactone (Aldactone) 25 Mg Tab 25 MG PO BID, TAB Admission Physical Exam As per Admitting History & Physical. Hospital Course Patient was a same day admission after undergoing a successful left TKA. she tolerated the procedure well. Post-operatively, her activity was progressed and well tolerated, she did experience post-op nausea which was felt to be related to anesthesia, which has improved this am. Please refer to daily progress notes and PT notes for complete details. After exam on 08/05/16, patient felt to be stable for discharge home with HHPT. Patient will f/u in the office in 2 weeks for further evaluation including x-rays and incision check, sooner if having any issues or concerns. Below are pertinent labs/studies during their hospital stay: Last Vital Signs Documentation Date Time Temp Pulse Resp B/P (MAP) Pulse Ox O2 Delivery O2 Flow Rate FiO2 08/05/16 00:00 Room Air 08/04/16 23:48 36.8 88 16 117/70 (86) 97 2.0 Last Resulted CBC 08/05/16 05:15 Red Blood Count 3.62, Mean Corpuscular Volume 85.6, Mean Corpuscular Hemoglobin 29.3, Mean Corpuscular Hemoglobin Concent 34.2, Mean Platelet Volume 10.5, Neutrophils (%) (Auto) 69.4, Lymphocytes (%) (Auto) 17.7, Monocytes (%) (Auto) 11.5, Eosinophils (%) (Auto) 1.0, Basophils (%) (Auto) 0.2, Neutrophils # (Auto ) 7.37, Lymphocytes # (Auto) 1.88, Monocytes # (Auto) 1.22, Eosinophils # (Auto ) 0.11, Basophils # (Auto) 0.02 Last Resulted BMP 08/05/16 05:15 Discharge Instructions ACTIVITY RECOMMENDATIONS: SELF CARE INSTRUCTIONS AFTER TOTAL KNEE REPLACEMENT A. You may need to continue a physical therapy program after discharge from the hospital. There are several options available to you. Your doctor will assist you in selecting the best one for you. 1. An out-patient facility 2 to 3 times a week for therapy or home therapy. 2. Continue working on all exercises taught to you in the hospital. Your goals should be to increase bending of your knee to 90 degrees and beyond and to fully straighten your knee. B. You may progress at your own pace from walking with a walker or crutches to a cane; then to no assistive devices. C. Make walking a part of your daily routine. Be up as much as comfortable with rest periods throughout the day. Rest with leg elevation is very important. Use the ice wrap frequently for the first 3-4 weeks. D. There are no restrictions on activities. You may ride in a car, shop, participate in celebrity chef entrepreneur media personality and all social activities. E. Wear the long elastic stockings (KLEBER hose) 20 hours a day for 2 weeks after surgery. They can be removed several times a day for laundering and for a bath. F. You may shower, no tub baths until cleared by your doctor. SPECIAL CARE INSTRUCTIONS: VERY IMPORTANT TO READ AND REVIEW A. There are a few signs you need to watch for after you are home. Call [facility] if you notice any of the followin. Increased severe knee pain. Some pain is expected especially when you exercise. 2. Increased swelling in your leg or knee; pain or swelling of the calf muscle in either lower leg. 3. Any fluid drainage from the incision. 4. Shortness of breath or chest pain. B. Please call [facility] at if you have any concerns or questions about your operation or recovery. The doctor or his nurse will return your call promptly. C. You must take antibiotics before dental work, bladder, bowel or other surgery. Your doctor will provide you with a permanent care to carry describing this precaution. IMPORTANT: * REMEMBER TO TAKE ASPIRIN, 81 MG, TWICE DAILY FOR 4 WEEKS UNLESS OTHERWISE DIRECTED. THIS IS YOUR BLOOD THINNER. * HIGH RISK PATIENTS MAY BE PRESCRIBED A STRONGER BLOOD THINNER. THIS WILL BE PROVIDED AT DISCHARGE. * CALL IF INCREASED PAIN, REDNESS, DRAINAGE OR FEVER GREATER THAT 101. * WEAR KLEBER HOSE 20 HOURS PER DAY FOR 2 WEEKS. * Prevena- This is a large suction dressing covering your incision. This will help pull any excess drainage from the wound and allow your incision to heal properly. You may shower with this if you can keep the unit outside of the shower. If any bleeding or leakage is noted please call your doctor's office. This will remain on your incision for 7 days and then should be removed. This can be done yourself or by the home nursing staff if applicable. The entire unit is disposable once removed. Once removed, keep incision clean and dry. If redness or drainage is noted, please call your surgeon. FOLLOW UP VISIT: If appointment is not already scheduled: Please call [facility] to make a follow-up appointment for 2 weeks after your surgery at .
[2016-08-05] MEDS: DOCUSATE SODIUM 100 MG CAP PO SCH ×2 (09:10→21:46)
[2016-08-05] MEDS: OXYCODONE HCL 10 MG TABCR (OXYCONTIN) PO SCH (09:10)
[2016-08-05] MEDS: AMLODIPINE BESYLATE 5 MG TAB PO SCH (09:10)
[2016-08-05] MEDS: FERROUS GLUCONATE 324 MG TAB PO SCH ×3 (09:10→18:18)
[2016-08-05] MEDS: PANTOprazole SOD 40 MG TAB PO SCH (09:11)
[2016-08-05] MEDS: MULTIVITAMIN TAB PO SCH (09:11)
[2016-08-05] MEDS: CARVEDILOL 25 MG TAB PO SCH ×2 (09:11→21:45)
[2016-08-05] MEDS: SERTRALINE HCL 100 MG TAB PO SCH (09:12)
[2016-08-05] MEDS: APIXABAN 2.5 MG TAB PO SCH ×2 (09:12→21:46)
[2016-08-05] MEDS: INSULIN ASPART 100 UNITS/ML 3 ML PEN SC SCH ×4 (09:15→21:42)
[2016-08-05] MEDS: INSULIN GLARGINE SOLOSTAR 100 UNITS/ML 3 ML PEN SC SCH (09:21)
[2016-08-05] MEDS: ACETAMINOPHEN 500 MG TAB PO SCH ×2 (13:48→21:46)
--- NOTE | 2016-08-05 18:26 | Hospitalist Progress Note ---
Hospitalist Progress Note Date of Service Aug 05, 2016. Subjective Pt evaluation today including: conversation w/ patient, conversation w/ family Was stil very nauseated earlier today and dc was postponed. Now eating dinner and feeling better. WIll continue to hold Oxycontin ER in case this was causing nausea. No CP or SOB. She did not bring in her home CPAP All Other Systems: Reviewed and Negative Objective Vital Signs Date Time Temp Pulse Resp B/P (MAP) Pulse Ox O2 Delivery O2 Flow Rate FiO2 08/05/16 16:10 72 98 08/05/16 15:06 36.9 72 18 123/77 (92) 98 Nasal Cannula 2.0 08/05/16 11:51 91 91 08/05/16 11:31 37.2 68 18 129/69 (89) 96 Nasal Cannula 2.0 08/05/16 10:23 94 Nasal Cannula 2.0 08/05/16 10:22 83 Room Air 08/05/16 09:00 94 Room Air 08/05/16 07:56 37.3 78 18 134/71 (92) 94 Room Air 08/05/16 07:30 Room Air 08/05/16 00:00 Room Air 08/04/16 23:48 36.8 88 16 117/70 (86) 97 Nasal Cannula 2.0 Physical Exam General Appearance: WD/WN, no apparent distress, + obese Eyes: normal inspection, sclerae normal ENT: hearing grossly normal Neck: trachea midline Respiratory/Chest: lungs clear, normal breath sounds, no respiratory distress, no accessory muscle use Cardiovascular: no murmur, + irregularly irregular (normal rate) Abdomen: normal bowel sounds, non tender, soft Extremities: + pertinent finding (left knee with ecchymosis around incision, dressing in place) Neurologic/Psychiatric: alert, normal mood/affect, oriented x 3 Skin: normal color, warm/dry, no rash Laboratory Results Last 24 Hours Test 08/04/16 20:42 08/05/16 05:15 08/05/16 08:03 08/05/16 11:56 Bedside Glucose 176 mg/dl 153 mg/dl 168 mg/dl White Blood Count 10.62 K/uL Red Blood Count 3.62 M/uL Hemoglobin 10.6 g/dL Hematocrit 31.0 % Mean Corpuscular Volume 85.6 fL Mean Corpuscular Hemoglobin 29.3 pg Mean Corpuscular Hemoglobin Concent 34.2 g/dl Platelet Count 182 K/uL Mean Platelet Volume 10.5 fL Neutrophils (%) (Auto) 69.4 % Lymphocytes (%) (Auto) 17.7 % Monocytes (%) (Auto) 11.5 % Eosinophils (%) (Auto) 1.0 % Basophils (%) (Auto) 0.2 % Neutrophils # (Auto) 7.37 K/uL Lymphocytes # (Auto) 1.88 K/uL Monocytes # (Auto) 1.22 K/uL Eosinophils # (Auto) 0.11 K/uL Basophils # (Auto) 0.02 K/uL RDW Standard Deviation 41.9 fL RDW Coefficient of Variation 13.3 % Immature Granulocyte % (Auto) 0.2 % Immature Granulocyte # (Auto) 0.02 K/uL Sodium Level 135 mmol/L Potassium Level 4.4 mmol/L Chloride Level 100 mmol/L Carbon Dioxide Level 30 mmol/L Anion Gap 5.0 mmol/L Blood Urea Nitrogen 14 mg/dl Creatinine 0.85 mg/dl Est Creatinine Clear Calc Drug Dose 77.3 ml/min Estimated GFR () 77.1 Estimated GFR (Non- 66.6 BUN/Creatinine Ratio 16.0 Random Glucose 162 mg/dl Calcium Level 8.3 mg/dl Magnesium Level 1.8 mg/dl Test 08/05/17 17:21 Bedside Glucose 163 mg/dl Assessment and Plan This pt is a 75 yo female with a h/o obesity, OA, GERD, DMII, permanent atrial fibrillation on Eliquis, and HTN, here with left TKA. Left TKA-POD#2, Ortho management -DVT proph with Eliquis -pain control PT/OT and plan for home PT but now possible [facility] -f/u with Ortho outpatient Post-op N/V=-related to anesthesia and possibly Oxycontin--> improving this evening -continue reglan prn, ZOfran prn, phenergan prn -hold Oxycontin A-fib/HTN- on Eliquis for anticoagulation, rate controlled with metoprolol, no issues with BP -continue home meds Coreg, Eliquis, amlodipine -irbesartan,lasix, and aldactone were all on hold for mild hyperkalemia and to prevent dehydration post-op--> ok to restart irbesartan and lasix in the AM, continue to hold aldactone -follow PRP DMII-HgbA1C 6.5% preop, glucose here in hyperglycemic range but received dexamethasone intra-op. -start Lantus 10 units now and then once daily -SSI and accuchecks -return to home dosing of insulin upon discharge as well as Januvia Obesity, acute hypoxemic respiratory insufficiency-requiring 2 LNC, MITCHELL on CPAP at home-->. Probably some atelectasis -IS, mobilization -wean O2 as tolerated -may need 2-step prior to discharge if going home, if going to [facility], can continue O2 and wean as able to there -CPAP at home or bring to [facility] if discharged to there tomorrow Proph-Alphonseis Dispo-FUll Code to home with Home PT vs [facility] tomorrow
[2016-08-05] MEDS ORDERED: NURSING VERBAL MED ORDER ONE (18:45)
[2016-08-05] MEDS: SENNA 8.6 MG TAB PO SCH (21:47)
[2016-08-06] MEDS: ACETAMINOPHEN 500 MG TAB PO SCH ×3 (05:32→20:46)
[2016-08-06 06:42] LABS: BUN/CREATININE RATIO 20.7 (10-20); CALCIUM 8.8 mg/dl (8.5-10.1); CREATININE 0.81 mg/dl (0.60-1.20); MAGNESIUM 1.9 mg/dl (1.8-2.4)
--- NOTE | 2016-08-06 06:59 | Orthopedic Progress Note ---
Orthopedic Progress Note Date of Service Aug 06, 2016. Subjective Post OP Day: 3 Reports: feeling well, pain controlled w PO medications, Denies: chest pain, SOB , nausea / vomiting, light headedness, calf pain Additional Notes: hasn't tolerated PT well as of yet, nausea improved this am. Objective calves soft nontender, N/V intact, capillary refill less than 2 sec., dressing C /D/I (prevena in place), A&O x3, toes mobile Date Time Temp Pulse Resp B/P (MAP) Pulse Ox O2 Delivery O2 Flow Rate FiO2 08/05/16 23:30 Nasal Cannula 2.0 08/05/16 23:30 37.0 77 18 113/66 (82) 97 Nasal Cannula 2.0 08/05/16 21:47 91 140/72 (94) 08/05/16 16:10 72 98 08/05/16 16:10 Nasal Cannula 2.0 08/05/16 15:06 36.9 72 18 123/77 (92) 98 Nasal Cannula 2.0 08/05/16 11:51 91 91 08/05/16 11:31 37.2 68 18 129/69 (89) 96 Nasal Cannula 2.0 08/05/16 10:23 94 Nasal Cannula 2.0 08/05/16 10:22 83 Room Air 08/05/16 09:00 94 Room Air 08/05/16 07:56 37.3 78 18 134/71 (92) 94 Room Air 08/05/16 07:30 Room Air Assessment & Plan Assessment: POD #3 s/p Left TKA -PT/OT -dvt proph with greg/scd/eliquis -plan was initially HHPT, however is not tolerating PT well here at [facility], will discuss with [facility] poss rehab Hyperkalemia- within normal limits today Diabetes mellitus. Hypertension. Dyslipidemia. Atrial fibrillation.- has started her Eliquis Discharge Planning Discharge Planning: uncertain DVT Prophylaxis: TEDs, SCDs Therapy: Physical Therapy
[2016-08-06 07:00] VITALS: BP 145/68; PULSE 75; TEMP 37; O2SAT 95
[2016-08-06] MEDS ORDERED: MAGNESIUM OXIDE 400 MG TAB PO SCH (08:00)
[2016-08-06] MEDS: FERROUS GLUCONATE 324 MG TAB PO SCH ×3 (08:52→17:52)
[2016-08-06] MEDS: IRBESARTAN 150 MG TAB PO SCH (08:54)
[2016-08-06] MEDS: FUROSEMIDE 20 MG TAB PO SCH (08:54)
[2016-08-06] MEDS: CARVEDILOL 25 MG TAB PO SCH ×2 (08:54→20:37)
[2016-08-06] MEDS: PANTOprazole SOD 40 MG TAB PO SCH (08:54)
[2016-08-06] MEDS: APIXABAN 2.5 MG TAB PO SCH ×2 (08:55→20:37)
[2016-08-06] MEDS: MULTIVITAMIN TAB PO SCH (08:55)
[2016-08-06] MEDS: AMLODIPINE BESYLATE 5 MG TAB PO SCH (08:55)
[2016-08-06] MEDS: DOCUSATE SODIUM 100 MG CAP PO SCH ×2 (08:55→20:37)
[2016-08-06] MEDS: SERTRALINE HCL 100 MG TAB PO SCH (08:55)
[2016-08-06] MEDS: OXYCODONE HCL IR 5 MG TAB (IMMEDIATE RELEASE) PO PRN ×2 (08:59→20:45)
[2016-08-06] MEDS: INSULIN ASPART 100 UNITS/ML 3 ML PEN SC SCH ×4 (09:05→21:31)
[2016-08-06] MEDS: INSULIN GLARGINE SOLOSTAR 100 UNITS/ML 3 ML PEN SC SCH (09:06)
--- NOTE | 2016-08-06 13:11 | Hospitalist Progress Note ---
Hospitalist Progress Note Date of Service Aug 06, 2016. (Jazzy Palomino ., PA-C) Subjective Pt evaluation today including: conversation w/ patient, conversation w/ family (- at bedisde ), physical exam, chart review, lab review, review of studies, conversation w/ information technology consultant Voiding: no voiding problems, no incontinence Patient states she is feeling well. She is eating and drinking OK. +flatus/No BM postop- denies abdominal distention/discomfort Worked w/ PT x2 today- did well, admits to increased pain, but controlled w/ rest/medication. Denies SOB- off O2 supplement when entering room; O2 sats 91-92% after conversation Patient denies any fever, chills, sweats, lightheadedness, dizziness, vision changes, CP, palpitations, edema, SOB, wheezing, cough, abdominal pain, nausea, vomiting, diarrhea, urinary symptoms, melena, numbness/tingling, weakness, anxiety/depression, active bleeding, or new skin discoloration/changes. (Jazzy Palomino ., PA-C) Medications Current Inpatient Medications Medications (Trade) Dose Ordered Sig/Tere Route Start Time Stop Time Status Last Admin Dose Admin Oxycodone HCl (Roxicodone Immediate Rel Tab) 1 TABLET FOR PAIN RATING... Q4H PRN PO 08/03/16 08:45 08/17/16 08:44 08/06/16 08:59 10 MG Oxycodone HCl (Oxycontin Tab) 10 mg Q12 PO 08/03/16 12:00 08/17/16 11:59 Future Hold 08/05/16 09:10 10 MG Magnesium Hydroxide (Milk Of Magnesia Susp) 30 ml Q6H PRN PO 08/03/16 08:45 09/02/16 08:44 Bisacodyl (Dulcolax Supp) [address] 08/03/16 08:45 09/02/16 08:44 Sodium Biphosphate/ Sodium Phosphate (Fleet Enema) [address] 08/03/16 08:45 09/02/16 08:44 Senna (Senokot Tab) 17.2 mg HS PO 08/03/16 21:00 09/02/16 20:59 08/05/16 21:47 17.2 MG Docusate Sodium (coLACE CAP) 100 mg BID PO 08/03/16 21:00 09/02/16 20:59 08/06/16 08:55 100 MG Diphenhydramine HCl (Benadryl Cap) 25 mg Q8H PRN PO 08/03/16 08:45 09/02/16 08:44 Al Hydrox/Mg Hydrox/Simethicone (Maalox Max Susp) 15 ml Q4H PRN PO 08/03/16 08:45 09/02/16 08:44 Zolpidem Tartrate (Ambien Tab) 5 mg HSZ PRN PO 08/03/16 08:45 09/02/16 08:44 Multivitamins (Multivitamin Tab) 1 tab QAM PO 08/04/16 09:00 09/03/16 08:59 08/06/16 08:55 1 TAB Ondansetron HCl (Zofran Inj) 4 mg Q6H PRN IV 08/03/16 08:45 09/02/16 08:44 08/05/16 17:27 4 MG Ferrous Gluconate (Ferrous Gluconate Tab) 324 mg TIDM PO 08/03/16 12:30 09/02/16 12:29 08/06/16 13:17 324 MG Pantoprazole Sodium (Protonix Tab) 40 mg QAM PO 08/04/16 09:00 09/03/16 08:59 08/06/16 08:54 40 MG Amlodipine Besylate (Norvasc Tab) 10 mg QAM PO 08/03/16 09:00 09/02/16 08:59 08/06/16 08:55 10 MG Carvedilol (Coreg Tab) 25 mg BID PO 08/03/16 09:00 09/02/16 08:59 08/06/16 08:54 25 MG Folic Acid (Folvite Tab) 2 mg QAM PO 08/04/16 09:00 09/03/16 08:59 08/06/16 08:55 2 MG Sertraline HCl (Zoloft Tab) 100 mg QAM PO 08/04/16 09:00 09/03/16 08:59 08/06/16 08:55 100 MG Morphine Sulfate (MoRPHine SULFATE INJ) 2 mg Q4HWA PRN IV 08/03/16 10:30 08/17/16 10:29 Morphine Sulfate (MoRPHine SULFATE INJ) 4 mg Q4HWA PRN IV 08/03/16 10:30 08/17/16 10:29 08/05/16 00:13 4 MG Morphine Sulfate (MoRPHine SULFATE INJ) 6 mg Q4HWA PRN IV 08/03/16 10:30 08/17/16 10:29 Apixaban (Eliquis Tab) 5 mg BID PO 08/04/16 09:00 09/03/16 08:59 08/06/16 08:55 5 MG Insulin Glargine (Lantus Solostar Pen) 10 unit DAILY SC 08/05/16 09:00 09/04/16 08:59 08/06/16 09:06 10 UNIT Insulin Aspart (novoLOG ASPART) SLIDING SCALE If C... ACHS SC 08/04/16 17:15 09/03/16 17:14 08/06/16 13:26 3 UNITS Glucose (Glucose 40% Gel) 15-30 GRAMS 15 GRAMS... UD PRN PO 08/04/16 15:30 09/03/16 15:29 Glucose (Glucose Chew Tab) 4-8 Tablets 4 Tabl... UD PRN PO 08/04/16 15:30 09/03/16 15:29 Dextrose (Dextrose 50% 50ML Syringe) 25-50ML OF 50% DW IV FOR... UD PRN IV 08/04/16 15:30 09/03/16 15:29 Glucagon (Glucagon Inj) 1 mg UD PRN SQ 08/04/16 15:30 09/03/16 15:29 Metoclopramide HCl (Reglan Inj) 10 mg Q6H PRN IV 08/04/16 16:15 09/03/16 10:14 08/05/16 09:05 10 MG Promethazine HCl 12.5 mg/Sodium Chloride 50.5 ml @ 204 mls/hr Q6H PRN IV 08/04/16 15:30 09/03/16 15:29 Acetaminophen (Tylenol Tab) 1,000 mg Q8 PO 08/05/16 14:00 09/04/16 13:59 08/06/16 13:17 1,000 MG Furosemide (Lasix Tab) 20 mg QAM PO 08/06/16 09:00 09/05/16 08:59 08/06/16 08:54 20 MG Irbesartan (Avapro Tab) 150 mg QAM PO 08/06/16 09:00 09/05/16 08:59 08/06/16 08:54 150 MG (Jazzy Palomnio, PA-C) Objective Vital Signs Date Time Temp Pulse Resp B/P (MAP) Pulse Ox O2 Delivery O2 Flow Rate FiO2 08/06/16 07:30 Room Air 08/06/16 07:00 37.0 75 20 145/68 (93) 95 Room Air 08/05/16 23:30 Nasal Cannula 2.0 08/05/16 23:30 37.0 77 18 113/66 (82) 97 Nasal Cannula 2.0 08/05/16 21:47 91 140/72 (94) 08/05/16 16:10 72 98 08/05/16 16:10 Nasal Cannula 2.0 08/05/16 15:06 36.9 72 18 123/77 (92) 98 Nasal Cannula 2.0 (Jazzy Palomino ., PA-C) Physical Exam General Appearance: no apparent distress, + obese, + pertinent finding (Able to speak full sentences w/ no SOB/difficulty ) Eyes: normal inspection, PERRL ENT: hearing grossly normal Neck: supple Respiratory/Chest: lungs clear, no respiratory distress, no accessory muscle use Cardiovascular: + irregularly irregular (rate controlled ) Abdomen: normal bowel sounds, non tender, soft Extremities: no pedal edema, no calf tenderness, + pertinent finding (SCDs/ TEDs on ) Neurologic/Psychiatric: alert, normal mood/affect, oriented x 3 Skin: normal color, warm/dry, no rash (Jazzy Palomino ., PA-C) Laboratory Results Last 24 Hours Test 08/05/16 17:21 08/05/16 21:41 08/06/16 05:05 08/06/16 08:02 Bedside Glucose 163 mg/dl 126 mg/dl 152 mg/dl Sodium Level 135 mmol/L Potassium Level 4.0 mmol/L Chloride Level 99 mmol/L Carbon Dioxide Level 29 mmol/L Anion Gap 7.0 mmol/L Blood Urea Nitrogen 17 mg/dl Creatinine 0.81 mg/dl Est Creatinine Clear Calc Drug Dose 81.1 ml/min Estimated GFR () 81.8 Estimated GFR (Non- 70.5 BUN/Creatinine Ratio 20.7 Random Glucose 135 mg/dl Calcium Level 8.8 mg/dl Magnesium Level 1.9 mg/dl Test 08/06/16 11:59 Bedside Glucose 129 mg/dl (Jazzy Palomino, HEMANTH) Assessment and Plan This pt is a 75 yo female with a h/o obesity, OA, GERD, DMII, permanent atrial fibrillation on Eliquis, and HTN, here with left TKA. s/p Left TKA on 08/[address] Rosenbaum- POD#3: - Surgical management, pain management, PT/OT, and DVT prophylaxis per primary team - Anemia, secondary to postop blood losses- Iron 325 mg TID - Outpatient f/u w/ ortho per Dr. Rosenbaum's recommendations Post-op N/V, likely related to anesthesia and possibly OxyContin- RESOLVED: - Continue Reglan PRN, Zofran PRN, and Phenergan PRN - Hold OxyContin A-fib- rate controlled/HTN: - Continue Coreg 25 mg BID, Eliquis 5 mg BID, Amlodipine 10 mg daily, Avapro 150 mg daily, Lasix 20 mg daily -- Irbesartan, Lasix, and Aldactone held for mild hyperkalemia and to prevent dehydration post-op--> Irbesartan and Lasix restarted on 08/06 -- Hesitant to restart Aldactone due to h/o hyperkalemia and BPs controlled at this time- [facility]/PCP can continue monitor need to restart agent - Followed PRP T2DM- HgbA1C 6.5% 07/13/16: - Hyperglycemia, likely secondary to Dexamethasone intra-op- RESOLVED - Lantus 10 units daily and BSG ACHS w/ sliding insulin scale - At discharge, resume home dosing of Insulin 32 u SQ QAM and 23 u SQ QPM and Januvia 50 mg QAM Obesity/Acute hypoxemic respiratory insufficiency- requiring 2L O2: - O2 protocol, wean as tolerated - IS, Mobilization - 2 step will not be needed due to discharge to acute rehab vs SNF placement- they can continue to monitor O2 supplementation needs and wean as tolerated MITCHELL: CPAP HS- instructed to bring home CPAP to [facility] Prophylaxis: Protonix, Maalox PRN, IV Zofran PRN, Colace and/or Milk of Mag PRN DVT Prophylaxis: Eliquis per ortho Code Status: LEVEL I, FULL Dispo: Discharge per primary team- likely to [facility] (Jazzy Palomino, PA-C) Reviewed: Pt Seen/Exam by Me (Kylah Jean MD) History Physician Toddler Teacher Supervision Note: I interviewed and examined the patient. Discussed with EHSAN Palomino and agree with findings and plan as documented in the note. Any exceptions or clarifications are listed here: Pt feeling much better now, no more nausea since Oxycontin stopped. Able to participate with PT Awaiting [facility] insurance auth VSS NAD, Obese irreg irreg, 2/6 DAYANA at [facility] no wcr ABd +BS soft NT obese Ext Left knee with ecchymosis around incision, no erythema 75 yo femle with left TKA, HTN, A-fib on Eliquis, DMII, MITCHELL on CPAP. Doing much better with post-op Nausea -plan for dc to [facility] hopefully tomorrow Documented By: Kylah Jean (Kylah Jean MD) Assessment/Plan This pt is a 75 yo female with a h/o obesity, OA, GERD, DMII, permanent atrial fibrillation on Eliquis, and HTN, here with left TKA. Left TKA-POD#2, Ortho management -DVT proph with Eliquis -pain control PT/OT and plan for home PT but now possible [facility] -f/u with Ortho outpatient Post-op N/V=-related to anesthesia and possibly Oxycontin--> improving this evening -continue reglan prn, ZOfran prn, phenergan prn -hold Oxycontin A-fib/HTN- on Eliquis for anticoagulation, rate controlled with metoprolol, no issues with BP -continue home meds Coreg, Eliquis, amlodipine -irbesartan,lasix, and aldactone were all on hold for mild hyperkalemia and to prevent dehydration post-op--> ok to restart irbesartan and lasix in the AM, continue to hold aldactone -follow PRP DMII-HgbA1C 6.5% preop, glucose here in hyperglycemic range but received dexamethasone intra-op. -start Lantus 10 units now and then once daily -SSI and accuchecks -return to home dosing of insulin upon discharge as well as Januvia Obesity, acute hypoxemic respiratory insufficiency-requiring 2 LNC, MITCHELL on CPAP at home-->. Probably some atelectasis -IS, mobilization -wean O2 as tolerated -may need 2-step prior to discharge if going home, if going to [facility], can continue O2 and wean as able to there -CPAP at home or bring to [facility] if discharged to there tomorrow Proph-Eliquis Dispo-FUll Code to home with Home PT vs [facility] tomorrow (Kylah Jean MD)
[2016-08-06 15:48] VITALS: BP 91/61; PULSE 79; TEMP 37.5; O2SAT 96
[2016-08-06 16:00] VITALS: O2SAT 96
[2016-08-06] MEDS ORDERED: ACET-24 PO (17:51)
[2016-08-06] MEDS ORDERED: SNK PO (17:51)
[2016-08-06] MEDS ORDERED: CLC100 PO (17:51)
--- NOTE | 2016-08-06 17:56 | Discharge Instructions ---
Discharge Instructions Date of Service Aug 06, 2016. Admission Reason for Admission: Left Knee Osteoarthritis Discharge Discharge Diagnosis / Problem: Left knee OA Discharge Goals Goal(s): Improve disease control, Therapeutic intervention Activity Recommendations Activity Limitations: per Instructions/Follow-up section . Instructions / Follow-Up Instructions / Follow-Up This pt is a 75 yo female with a h/o obesity, OA, GERD, DMII, permanent atrial fibrillation on Eliquis, and HTN, here with left TKA. s/p Left TKA on 08/[address] Rosenbaum - Surgical management, pain management, PT/OT, and DVT prophylaxis per primary team - Anemia, secondary to postop blood losses- Iron 325 mg TID - Outpatient f/u w/ ortho per Dr. Rosenbaum's recommendations Post-op N/V, likely related to anesthesia and possibly OxyContin- RESOLVED: - Hold OxyContin A-fib- rate controlled/HTN: - Continue Coreg 25 mg BID, Eliquis 5 mg BID, Amlodipine 10 mg daily, Avapro 150 mg daily, Lasix 20 mg daily -- Irbesartan, Lasix, and Aldactone held for mild hyperkalemia and to prevent dehydration post-op--> Irbesartan and Lasix restarted on 08/06 -- Hesitant to restart Aldactone due to h/o hyperkalemia and BPs controlled at this time- [facility]P can continue monitor need to restart agent - Followed PRP T2DM- HgbA1C 6.5% 07/13/16: - Hyperglycemia, likely secondary to Dexamethasone intra-op- RESOLVED - Lantus 10 units daily and BSG ACHS w/ sliding insulin scale - At discharge, resume home dosing of Insulin 32 u SQ QAM and 23 u SQ QPM and Januvia 50 mg QAM Obesity/Acute hypoxemic respiratory insufficiency- was requiring 2L O2, now weaned off at rest -may need O2 with exertion - IS, Mobilization MITCHELL: CPAP HS- instructed to bring home CPAP to [facility] DVT Prophylaxis: Eliquis Current Hospital Diet Patient's current hospital diet: Diabetes Type 2 Diet Discharge Diet Recommended Diet: Diabetes Type 2 Diet Procedures Procedures Performed: Left Total Knee Arthroplasty Pending Studies Studies pending at discharge: no Laboratory Results Hemoglobin A1c Test 07/13/16 12:50 Range/Units Estimated Average Glucose 140 mg/dl Hemoglobin A1c 6.5 H 4.5-5.6 % Medical Emergencies . Who to Call and When: Medical Emergencies: If at any time you feel your situation is an emergency, please call 911 immediately. . Non-Emergent Contact Non-Emergency issues call your: Primary Care Provider, Surgeon . . "Provider Documentation" section prepared by Kylah Jean. . VTE Core Measure Inpt VTE Proph given/why not?: Other Anticoagulation (Eliquis 5mg po bid), T.E.D. Stockings, SCD's
[2016-08-06] MEDS: SENNA 8.6 MG TAB PO SCH (20:37)
[2016-08-06 23:04] VITALS: BP 93/54; PULSE 68; TEMP 37.5; O2SAT 98
[2016-08-06 23:05] VITALS: O2SAT 97
[2016-08-06 23:06] VITALS: TEMP 37.2
[2016-08-07] MEDS: ACETAMINOPHEN 500 MG TAB PO SCH (05:50)
[2016-08-07 06:55] VITALS: BP 109/68; PULSE 61; TEMP 37; O2SAT 96
--- NOTE | 2016-08-07 09:03 | Orthopedic Progress Note ---
Orthopedic Progress Note Date of Service Aug 07, 2016. Subjective Post OP Day: 4 Reports: feeling well, pain controlled w PO medications, Denies: chest pain, SOB , nausea / vomiting, light headedness, calf pain Objective calves soft nontender, N/V intact, capillary refill less than 2 sec., dressing C /D/I (Prevena dressing in place and functioning), A&O x3, toes mobile Date Time Temp Pulse Resp B/P (MAP) Pulse Ox O2 Delivery O2 Flow Rate FiO2 08/07/16 06:55 37.0 61 19 109/68 (82) 96 Nasal Cannula 2.0 08/06/16 23:06 37.2 08/06/16 23:05 97 Nasal Cannula 2.0 08/06/16 23:04 37.5 68 16 93/54 (67) 98 Nasal Cannula 2.0 08/06/16 16:00 96 Room Air 08/06/16 15:48 37.5 79 20 91/61 (71) 96 Room Air Assessment & Plan Assessment: POD #4 s/p Left TKA -PT/OT -dvt proph with greg/scd/eliquis -Patient was denied HS [facility]. Discussed SNF but patient and do not want to have the potential of waiting for approval and still getting denied. They would prefer home with home health today. Hyperkalemia- within normal limits today Diabetes mellitus. Hypertension. Dyslipidemia. Atrial fibrillation.- has started her Eliquis Inhouse Planning Pain Management: Morphine, Oxy IR DVT Prophylaxis: TEDs, other (Eliquis) Discharge Planning Discharge Planning: home with home health DVT Prophylaxis: TEDs, SCDs Therapy: Physical Therapy
[2016-08-07] MEDS: INSULIN ASPART 100 UNITS/ML 3 ML PEN SC SCH (09:12)
[2016-08-07] MEDS: INSULIN GLARGINE SOLOSTAR 100 UNITS/ML 3 ML PEN SC SCH (09:14)
[2016-08-07] MEDS: SERTRALINE HCL 100 MG TAB PO SCH (09:16)
[2016-08-07] MEDS: IRBESARTAN 150 MG TAB PO SCH (09:16)
[2016-08-07] MEDS: DOCUSATE SODIUM 100 MG CAP PO SCH (09:16)
[2016-08-07] MEDS: PANTOprazole SOD 40 MG TAB PO SCH (09:16)
[2016-08-07] MEDS: MULTIVITAMIN TAB PO SCH (09:16)
[2016-08-07] MEDS: AMLODIPINE BESYLATE 5 MG TAB PO SCH (09:16)
[2016-08-07] MEDS: APIXABAN 2.5 MG TAB PO SCH (09:16)
[2016-08-07] MEDS: CARVEDILOL 25 MG TAB PO SCH (09:17)
[2016-08-07] MEDS: FUROSEMIDE 20 MG TAB PO SCH (09:17)
[2016-08-07] MEDS: FERROUS GLUCONATE 324 MG TAB PO SCH (09:17)
[2016-08-07] MEDS: OXYCODONE HCL IR 5 MG TAB (IMMEDIATE RELEASE) PO PRN (09:22)
[2016-08-07 10:54] VITALS: PULSE 108; O2SAT 93
[2016-08-07 11:27] VITALS: BP 109/68; PULSE 108; TEMP 37; O2SAT 93
== END 2016-08-07 11:57 | disposition home health service (06) | DRG 470 ==
LOC: C.ACU 05:00 → C.3E 08:49 → ENRESERV 09:22
PROVIDERS: ADMIT Orthopaedic Surgery; ATTEND Orthopaedic Surgery
PROC: 0SRD0J9 Replacement of Left Knee Joint with Synthetic Substitute, Cemented, Open Approach (ICD-10-PCS; principal; 2016-08-03 07:00)
DX: M17.12 Unilateral primary osteoarthritis, left knee (principal); J98.11 Atelectasis; R06.89 Other abnormalities of breathing; E87.5 Hyperkalemia; R11.2 Nausea with vomiting, unspecified; T41.45XA Adverse effect of unspecified anesthetic, initial encounter; T40.2X5A Adverse effect of other opioids, initial encounter; G47.33 Obstructive sleep apnea (adult) (pediatric); I10 Essential (primary) hypertension; E11.9 Type 2 diabetes mellitus without complications; K21.9 Gastro-esophageal reflux disease without esophagitis; I48.91 Unspecified atrial fibrillation; E66.01 Morbid (severe) obesity due to excess calories; Z51.81 Encounter for therapeutic drug level monitoring; Z79.899 Other long term (current) drug therapy; Z79.4 Long term (current) use of insulin; Z68.38 Body mass index [BMI] 38.0-38.9, adult; Z83.3 Family history of diabetes mellitus; Z82.49 Family history of ischemic heart disease and other diseases of the circulatory system